=== PATIENT | male | born 1955 | race Caucasian/White ===

== ENCOUNTER 2020-04-23 08:31 | Outpatient (NON) | payer OTHER, SELFPAY ==
[2020-04-23 18:18] LABS: SARS-CoV-2 RNA PCR Positive
== END 2020-04-23 08:32 ==
LOC: ANHCOVIDDT 08:33
PROVIDERS: PCP Family Medicine; Visit Provider Family Medicine
DX: U07.1 COVID-19 (principal); R68.89 Other general symptoms and signs
CPT/HCPCS: C9803; U0003; U0005

== ENCOUNTER 2020-04-26 10:20 | Outpatient (CLI) | payer OTHER, SELFPAY ==
--- NOTE | ~2020-04-26 | XR_ITS ---
XR chest 2V 04/26/2020 10:33 Indication: Shortness of breath. Covid. Cough. Procedure: 2 view chest Comparison: No prior studies for comparison. Findings: Patchy bilateral infiltrates. Chronic apical pleural thickening/scarring. No pleural effusi on. Heart size normal. No pneumothorax. Impression: 1: Patchy bilateral peripheral infiltrates, consistent with pneumonia. Reviewed, dictated and finalized at location A. NER AND DYER Impression: 1: Patchy bilateral peripheral infiltrates, consistent with pneumonia.
== END 2020-04-26 10:21 | disposition home or self-care (01) ==
PROVIDERS: PCP Family Medicine; Visit Provider Physician Assistant
DX: U07.1 COVID-19 (principal); R06.02 Shortness of breath; R91.8 Other nonspecific abnormal finding of lung field
CPT/HCPCS: 71046

== ENCOUNTER 2020-04-28 09:29 | Inpatient (IN) | payer OTHER, SELFPAY ==
[2020-04-28] VITALS (14 sets, daily range): BP systolic 118–131; BP diastolic 72–95; PULSE 63–89; RESP 16–20; TEMP 36.4–36.9; O2SAT 74–98; BMI 24.2; BMI 24.0
--- NOTE | ~2020-04-28 | XR_ITS ---
EXAMINATION: XR chest 1V portable EXAM DATE: 04/30/2020 07:58 INDICATION: COVID 19. TECHNIQUE: Portable AP frontal chest x-ray was obtained. Comparison is made to prior examination from 04/28/2020, 04/26. FINDINGS: Suspect that there has been some interval increase in ill-defined density over both lungs, could be developing groundglass opacities of COVID pneumonia. There are some prominent peripheral ret iculation, appearance most consistent with chronic interstitial lung disease. Small amount of biapic al scarring. There is no pneumothorax or pleural effusion suspected. Moderate chronic hyperinflation. Cardiomediastinal silhouette is normal. There are mild bony degenerative changes. IMPRESSION: 1. Suspect developing bilateral groundglass acute infectious process. 2. Some prominent peripheral distribution reticulation, most consistent with interstitial lung disea se. 3. Hyperinflation. Reviewed, dictated and finalized at location A. L ARCHITECT IMPRESSION: 1. Suspect developing bilateral groundglass acute infectious process. 2. Some prominent peripheral distribution reticulation, most consistent with i nterstitial lung disease. 3. Hyperinflation.
--- NOTE | ~2020-04-28 | XR_ITS ---
EXAMINATION: XR chest 1V portable INDICATION: Shortness of breath TECHNIQUE: Portable AP chest at 0638 hours COMPARISON: 04/30/2020 FINDINGS: Diffuse opacities persist throughout all lung zones without significant change. There is no pleural effusion. No definite pneumothorax is identified. Subcutaneous emphysema has developed in th e neck, right chest wall, and the bilateral supraclavicular regions. There is questionable pneumomedi astinum. The cardiomediastinal silhouette is stable. IMPRESSION: 1. Stable diffuse lung disease, consistent with pneumonia and/or pulmonary edema. 2. Interval development of subcutaneous emphysema in the neck and right chest wall and possible pneum omediastinum. Consider further evaluation with CT of the chest. Reviewed, dictated and finalized at location A. TION COORDINATOR IMPRESSION: 1. Stable diffuse lung disease, consistent with pneumonia and/or pulmonary abigail a. 2. Interval development of subcutaneous emphysema in the neck and right chest w all and possible pneumomediastinum. Consider further evaluation with CT of the chest.
--- NOTE | ~2020-04-28 | XR_ITS ---
EXAMINATION: XR chest 1V portable EXAM DATE: 04/28/2020 10:18 INDICATION: Shortness of air. Cough. TECHNIQUE: Portable AP frontal chest x-ray was obtained. Comparison is made to prior examination from 04/26/2020. Correlation was made with chest CT 02/01/2013. FINDINGS: There are some prominent peripheral reticulation, appearance most consistent with chronic i nterstitial lung disease. Difficult to exclude left basilar infection. Small amount of biapical scarr ing. No confluent consolidation, pneumothorax or pleural effusion suspected. Moderate chronic hyperin flation. Cardiomediastinal silhouette is normal. There are mild bony degenerative changes. IMPRESSION: 1. Some prominent peripheral distribution reticulation, most consistent with interstitial lung disea se. Consider follow-up nonemergent chest CT without contrast. 2. Difficult to exclude left basilar infection. 3. Hyperinflation. Reviewed, dictated and finalized at location A. MOBILE APPRAISER IMPRESSION: 1. Some prominent peripheral distribution reticulation, most consistent with i nterstitial lung disease. Consider follow-up nonemergent chest CT without contr ast. 2. Difficult to exclude left basilar infection. 3. Hyperinflation.
--- NOTE | ~2020-04-28 | US_ITS ---
EXAMINATION: US venous doppler [facility] DATE: 04/29/2020 10:46 INDICATION: Acute pulmonary emboli. TECHNIQUE: Grayscale ultrasound images without and with compression and Doppler ultrasound images of the bilateral lower extremity veins were obtained. COMPARISON: None. FINDINGS: The visualized portions of right common femoral vein, profunda (deep) femoral vein, femoral vein, pop liteal vein, peroneal veins, posterior tibial veins, and greater saphenous vein outflow are patent. The visualized portions of left common femoral vein, profunda femoral vein, femoral vein, popliteal v ein, peroneal veins, posterior tibial veins, and greater saphenous vein outflow are patent. IMPRESSION: 1. No deep venous thrombosis. Reviewed, dictated and finalized at location B. PING RECEIVING MANAGER
--- NOTE | ~2020-04-28 | CT_ITS ---
EXAMINATION: CTA chest PE protocol DATE: 04/28/2020 19:02 INDICATION: Hypoxia TECHNIQUE: Computed tomography angiography (CTA) of the chest was performed with 100 mL Omnipaque-350 intravenous contrast timed to evaluate the pulmonary arteries. Coronal maximum intensity projection 3D-reconstructions were created by the technologist. The dose-length product (DLP) was 290.32 mGy-cm. Automated exposure control and iterative reconstruction technique were employed. COMPARISON: None. FINDINGS: The pulmonary arteries are well-opacified. There are acute pulmonary emboli in the proximal branches of the left upper lobe, left lower lobe, right middle lobe, and right lower lobe pulmonary arteries. There is straightening of the interventricular septum. There are smooth septal thickening a nd groundglass opacities with a lower lung zone predominance. There is no pleural effusion or pneumot horax. There is a small sliding hiatal hernia. Mild bilateral gynecomastia is noted. There is moderat e emphysema. There is moderate thoracic spondylosis IMPRESSION: 1. Acute bilateral pulmonary emboli with possible right heart strain. 2. Groundglass opacities and interlobular septal thickening with a lower lung zone predominance, cons istent with pneumonia and/or pulmonary edema. These findings were discussed with Dr. Dominick MD at 2009 hours on 04/28/2020. Reviewed, dictated and finalized at location A. THESIOLOGIST IMPRESSION: 1. Acute bilateral pulmonary emboli with possible right heart strain. 2. Groundglass opacities and interlobular septal thickening with a lower lung z one predominance, consistent with pneumonia and/or pulmonary edema. These findings were discussed with Dr. Dominick MD at 2009 hours on 04/28/2020.
--- NOTE | ~2020-04-28 | CT_ITS ---
EXAMINATION: CT diagnostic chest wo con DATE: 05/04/2020 13:38 INDICATION: Pneumomediastinum TECHNIQUE: Computed tomography (CT) of the chest was performed without intravenous contrast. The dose -length product (DLP) was 229.52 mGy-cm. Automated exposure control and iterative reconstruction tech Pinstripe[employer] were employed. COMPARISON: 04/28/2020 FINDINGS: There are diffuse peripheral groundglass opacities in the lungs with a lower lung zone pred ominance without significant change since the comparison examination. Pneumomediastinum has developed which tracks into the neck, the precervical space, the supraclavicular regions, and the chest wall, right greater than left. There is no pleural effusion or pneumothorax. The heart size is normal. Ther e are no pathologically enlarged thoracic lymph nodes. There is moderate emphysema. Mild bilateral gy necomastia is noted. There is moderate thoracic spondylosis. IMPRESSION: 1. Interval development of pneumomediastinum tracking into the neck and chest wall, likely related to lung disease. 2. Diffuse groundglass opacities with a lower lung zone predominance, likely pneumonia. Reviewed, dictated and finalized at location A. COM SPECIALIST IMPRESSION: 1. Interval development of pneumomediastinum tracking into the neck and chest w all, likely related to lung disease. 2. Diffuse groundglass opacities with a lower lung zone predominance, likely pn eumonia.
--- NOTE | 2020-04-28 09:40 | ECG_ITS ---
Measurements Intervals [place] Rate: 69 P: 69 AK: 169 QRS: 60 QRSD: 93 T: 24 QT: 378 QTc: 407 Interpretive Statements SINUS RHYTHM WITH SINUS ARRHYTHMIA BORDERLINE ST-T WAVE ABNORMALITY- ANTEROLAT/INF LEADS BORDERLINE ECG Electronically Signed On 04-28-2020 12:50:23 INFLATED PAD BUFFER by Kristian June D.O.
[2020-04-28] MEDS: DEXAMETHASONE SOD PHOS INJ 4 MG/ML VIAL 6 MG IV PUSH (09:53)
[2020-04-28 10:05] LABS: Basophils Percent Auto 0.3 % (0.2-1.2); Hematocrit 43.6 % (42.0-52.0); Hemoglobin 15.3 g/dL (14.0-18.0); Immature Granulocyte Absolute 0.23 K/mm3 (0.00-0.031); Immature Granulocyte Percent A 1.4 % (0-0.5); Lymphocytes Absolute Auto 0.99 K/mm3 (0.9-3.2); Lymphocytes Percent Auto 6.2 % (18.3-44.2); Mean Corpuscular HGB Conc 35.1 g/dl (32-36); Mean Corpuscular Hemoglobin 32.1 pg (26-34); Mean Corpuscular Volume 91.6 fl (80-100); Monocytes Percent Auto 6.3 % (2.6-8.5); Neutrophils Absolute Auto 13.7 K/mm3 (1.3-6.7); Neutrophils Percent Auto 85.8 % (45.5-73.1); Platelet Count Result 270 k/mm3 (150-375); Red Blood Count 4.76 M/mm3 (4.6-6.20); Red Cell Distribution Width 11.9 % (11.5-14.5)
[2020-04-28 10:21] LABS: Alanine Aminotransferase 56 U/L (4-50); Alkaline Phosphatase 75 U/L (38-126); Anion Gap 8 mmol/L (8-16); Aspartate Amino Transferase 59 U/L (17-59); Blood Urea Nitrogen 19 mg/dL (9-20); CRP 2.1 mg/dL (<1.0); Calcium 9.4 mg/dL (8.4-10.2); Carbon Dioxide 27 mmol/L (22-30); Chloride 104 mmol/L (98-107); Estimated CRCL calculation 70 ml/min; Estimated Glomerular Filt Rate > 60; Glucose 124 mg/dL (75-110); Sodium 139 mmol/L (137-145)
[2020-04-28 10:42] LABS: D Dimer > 20.00 ug/mL (<0.48)
--- NOTE | 2020-04-28 10:49 | ED.SOB ---
HPI - SOB/Dyspnea General Chief Complaint: Shortness of Breath/Dyspnea Stated Complaint: SOB COVID + PNEUMONIA Time Seen by Provider: 04/28/20 09:33 History of Present Illness HPI Narrative: Patient is a 64-year-old male who presents ER with shortness of breath. Reports began feeling ill on 04/15/2020. Was told symptoms were not severe enough so he did not receive a Covid test until 04/23/2020. It came back positive. Patient reports home pulse oximeter is showing his oxygen level in the 80s. Because of persistent shortness of breath with any type of exertion he came in for further evaluation. Reports mild cough with exertion. No chest pain or chest pressure. Reports fevers and chills have improved from earlier in his timeline. He has not been on any inhalers or steroids. He has been using a nasal decongestant. No known Covid contacts but suspects he contracted the illness while traveling to [place] and to [facility] to visit family. Upon arrival to the ER patient satting in the mid 70s. Related Data Home Medications Medication Instructions Recorded Confirmed calcipotriene 0.005 % scalp 1 applic TOPICAL DAILY 03/12/20 solution triamcinolone acetonide 0.1 % 1 applic TOPICAL BID 03/12/20 topical cream Allergies Allergy/AdvReac Type Severity Reaction Status Date / Time NKDA Allergy Mild unknown Uncoded 04/28/20 11:06 Review of Systems Review of Systems: All systems reviewed & are unremarkable except as noted in HPI and below Constitutional: Constitutional: Reports chills, Reports fatigue and Reports fever(s) ENT: Reports nasal congestion and Denies sore throat Cardiovascular: Cardiovascular: Denies chest pain and Denies radiating jaw, neck or arm pain Respiratory: Respiratory: Reports cough, Reports dyspnea and Denies wheezing Gastrointestinal: Gastrointestinal: Denies abdominal pain, Denies nausea and Denies vomiting [facility] Past Medical History Medical History (Updated 04/28/20 @ 11:39 by Demarco Sunshine MD) Cholesteatoma of attic of right ear Hearing loss of both ears Surgical History Surgical History (Updated 12/18/19 @ 10:44 by Ghazala Miller MD) History of mastoidectomy Family History Family History Father Family history of alcoholism, Onset Age: 68 Patient's father is Mother Family history of malignant neoplasm of ovary, Onset Age: 63 Patient's mother is Social History Social History Social History: Smoking status: Never smoker Second hand tobacco smoke exposure: No Alcohol intake: current Drinks per week: 6 Substance use: never Substance use type: does not use Gender identity (if verbalized by the patient): Male Exam Narrative: Exam Narrative: GENERAL: Well-appearing, well-nourished, and in no acute distress. HEAD: Normocephalic, atraumatic. CHEST: Clear to auscultation. No respiratory distress. HEART: Regular rate and rhythm. Normal peripheral pulses. ABDOMEN: Soft, nontender, nondistended. EXTREMITIES: Normal range of motion. No edema. SKIN: Warm, dry, no rash. NEURO: Alert and oriented x3. PSYCH: Normal mood and affect. Course Course Emergency Course: Patient requiring 4 L nasal cannula for normal oxygenation. Patient given dexamethasone. Admit to hospitalist service. Vital Signs Vital signs: Vital Signs Temperature 98.4 F 04/28/20 09:50 Pulse Rate 83 04/28/20 09:50 Respiratory Rate 16 04/28/20 09:50 Blood Pressure 131/89 04/28/20 09:50 Pulse Oximetry 74 L 04/28/20 09:50 Temperature 98.4 F 04/28/20 09:50 Pulse Rate 75 04/28/20 10:46 Respiratory Rate 16 04/28/20 09:50 Blood Pressure 128/86 04/28/20 10:46 Pulse Oximetry 90 04/28/20 10:46 MDM - SOB/Dyspnea Lab Data Result diagrams: 04/28/20 09:58 04/28/20 09:58
--- NOTE | 2020-04-28 13:21 | ADMGEN ---
This patient, Junior Giraldo, was admitted to [facility] Surg Room 321-01. Patient/family oriented to hospital policies and general routines including ID bracelet, bed and alarms, visiting hours, pain management, procedures, bathroom and other care routines, personal items, smoking policy, room service/diet, and visiting hours. Information on how to activate the Rapid Response Team has been discussed. Patient/Family are encouraged to report perceived risks to care and to ask questions if they do not understand what they are told or what they should do.
--- NOTE | 2020-04-28 17:49 | PM.IMHP ---
H&P: HPI History of Present Illness Date/Time: 04/28/20 17:49 Chief Complaint: SOB Narrative: Junior Giraldo is a 64 year old male here for SOB. Patient was traveling over the [place] holiday and when he returned he began to have symptoms of headache, diarrhea, shortness of breath, fatigue and cough. His has similar symptoms. His symptoms began April 15 but they were mild so he was not tested initially for COVID-19. He did have loss of taste and smell but this has improved. His headache and diarrhea symptoms also have improved. He continued however to have shortness of breath and obtained a pulse ox. His oxygen requirement has been slowly drifting down initially in the low 90s but now consistently in the upper 80s. He ultimately was tested for COVID on April 23 and was positive. A chest x-ray on April 26 which showed patchy bilateral peripheral infiltrates consistent with pneumonia. At that time he was started on dexamethasone. Levaquin also was ordered but patient states he never took this. He denies chest pain, fever, dysphagia, nausea/vomiting, dysuria, hematuria. Because of his persistent shortness of breath, dyspnea on exertion and hypoxia, patient presented to the emergency room for evaluation. In the ED, patient was hypoxic in the 70's that improved with 4L. CXR showing prominent peripheral distribution reticulation, most consistent with interstitial lung disease. WBC elevated but he had been on steroids. He was started on IV Dexamethasone and admitted for further care. He feels better this evening. Review of Systems Review of Systems: All systems reviewed & are unremarkable except as noted in HPI and below PMFSH Past Medical History Medical History Cholesteatoma of attic of right ear Hearing loss of both ears Surgical History Surgical History History of mastoidectomy Family History Family History Father Family history of alcoholism, Onset Age: 68 Patient's father is Mother Family history of malignant neoplasm of ovary, Onset Age: 63 Patient's mother is Social History Social History (Updated 04/28/20 @ 18:21 by Jared Nelson MD) Social History: and lives at home with his . No tobacco or drug use. Drinks 1-2 alcoholic drinks per day most days. Full code. Nominates his to be the individual to make decisions for him if he is unable. Smoking status: Never smoker Second hand tobacco smoke exposure: No Alcohol intake: former Drinks per week: 6 Substance use: never Substance use type: does not use Gender identity (if verbalized by the patient): Male Sexual Orientation (if Verbalized by the Patient): Straight or Heterosexual Spiritual care concerns: No Meds Home Medications and Allergies Home Medications Medication Instructions Recorded Confirmed Type clobetasol 0.05 % scalp solution 1 applic TOPICAL DAILY #50 ml 12/18/19 04/28/20 Rx azelastine 137 mcg (0.1 %) nasal 1 spray INTRANASAL Q12H #30 ml 03/12/20 04/28/20 Rx spray aerosol calcipotriene 0.005 % scalp 1 applic TOPICAL DAILY 03/12/20 04/28/20 History solution triamcinolone acetonide 0.1 % 1 applic TOPICAL BID 03/12/20 04/28/20 History topical cream dexamethasone 4 mg tablet 4 mg PO BID 7 Days #14 tablet 04/25/20 04/28/20 Rx dexamethasone 6 mg tablet 6 mg PO BID 7 Days #14 tablet 04/25/20 04/28/20 Rx fluticasone 250 mcg-salmeterol 50 1 inh INHALATION BID #60 ea 04/25/20 04/28/20 Rx mcg/dose blistr powdr for inhalation levofloxacin 500 mg tablet 500 mg PO DAILY #10 tablet 04/27/20 04/28/20 Rx Allergies Allergy/AdvReac Type Severity Reaction Status Date / Time NKDA Allergy Mild unknown Uncoded 04/28/20 14:44 Vital Signs Vital Signs - 24 hr
[2020-04-28] MEDS: ENOXAPARIN 40 MG/0.4 ML SYRINGE SUB-Q ×2 (20:48→20:49)
[2020-04-28] MEDS: REMDESIVIR 200 MG/NS 250 ML 200 MG/250 ML BAG 250 MG IVPB (20:48)
[2020-04-28] MEDS: AZELASTINE HCL NASAL 0.1% 137 MCG/SPR 30 ML BTL 1 SPRAY NASAL (20:52)
[2020-04-28] MEDS: ALBUTEROL SULFATE (*SP) AEROSOL 1 PUFF 2 PUFF INHALATION (21:13)
[2020-04-28] MEDS: FLUTICASONE/SALMETEROL 115-21 MCG INHALER 1 PUFF 2 PUFF INHALATION (21:13)
[2020-04-29] VITALS (10 sets, daily range): BP systolic 115–132; BP diastolic 61–90; PULSE 72–88; RESP 16–20; TEMP 36.6–37.1; O2SAT 88–94
--- NOTE | 2020-04-29 | ECHO_ITS ---
Patient Info Name: Junior Giraldo Age: 64 years : 1955 Gender: Male Ht: 72 in Wt: 177 lbs BSA: 2.02 m2 HR: 79 bpm BP: 119 / 61 mmHg Technical Quality: Fair Exam Date: 04/29/2020 11:28 AM Exam Location: [facility] Pulmonary Patient Status: Inpatient Admit Date: 04/28/2020 Staff Ordering Physician: Jared Nelson MD Supervisor Cold Rolling: Dali Moore RDCS Attending Provider: Jared Nelson MD Exam Type: CA echo doppler color flow Study Info Indications - PULMONARY EMBOLISM Complete two-dimensional, color flow and Doppler transthoracic echocardiogram is performed. Summary 1. Complete two-dimensional, color flow and Doppler transthoracic echocardiogram is performed. 2. Left ventricular chamber dimension is normal. 3. Left ventricular systolic function is normal, estimated at 60-65%. 4. The left ventricular diastolic function is normal. 5. E/e' 5 is not elevated. 6. There is trace tricuspid valve regurgitation. 7. No pulmonary hypertension, estimated pulmonary arterial systolic pressure is 28 mmHg. Left Ventricle E/e' 5 is not elevated. Left ventricular chamber dimension is normal. Left ventricular systolic function is normal, estimated at 60-65%. The left ventricular diastolic function is normal. Right Ventricle Right ventricular chamber dimension is normal. Right ventricular systolic function is normal. Left Atria Left atrial chamber dimension is normal. Right Atria Right atrial chamber dimension is normal. Aortic Valve The aortic valve is trileaflet. There is no aortic valve stenosis. There is no aortic valve regurgitation. Pulmonic Valve There is no pulmonic regurgitation. Mitral Valve There is no mitral valve stenosis. There is no mitral valve regurgitation. Tricuspid Valve There is trace tricuspid valve regurgitation. No pulmonary hypertension, estimated pulmonary arterial systolic pressure is 28 mmHg. Pericardium/Pleural There is no pericardial effusion. Inferior Vena Cava Normal inferior vena cava with >50% collapse upon inspiration consistent with normal right atrial pressure, 5 mmHg. Aorta The aortic root size at the sinus of Valsalva is normal. Left Ventricular Outflow Tract Name Value Normal LVOT 2D LVOT Diameter 2.0 cm LVOT Doppler LVOT Peak Gradient 5 mmHg LVOT Mean Gradient 3 mmHg LVOT VTI 20 cm LVOT VTI/AV VTI Ratio 1.0 LVOT Stroke Volume 64 ml LVOT CO 6.3 l/min LVOT CI 3.1 l/min/m2 Pulmonic Valve Name Value Normal RVOT Doppler RVOT Peak Gradient 4 mmHg PV Doppler PV Pea
[2020-04-29] MEDS: ALBUTEROL SULFATE (*SP) AEROSOL 1 PUFF 2 PUFF INHALATION ×4 (02:39→21:50)
[2020-04-29] MEDS: ENOXAPARIN 80 MG/0.8 ML SYRINGE SUB-Q ×2 (06:28→18:03)
[2020-04-29 06:59] LABS: Alanine Aminotransferase 46 U/L (4-50); Estimated CRCL calculation 80 ml/min; Estimated Glomerular Filt Rate > 60
[2020-04-29] MEDS: AZELASTINE HCL NASAL 0.1% 137 MCG/SPR 30 ML BTL 1 SPRAY NASAL ×2 (08:24→21:51)
[2020-04-29] MEDS: FLUTICASONE/SALMETEROL 115-21 MCG INHALER 1 PUFF 2 PUFF INHALATION ×2 (08:25→21:51)
[2020-04-29] MEDS: DEXAMETHASONE SOD PHOS INJ 4 MG/ML VIAL 6 MG IV PUSH (08:26)
--- NOTE | 2020-04-29 15:56 | PM.IMPN ---
Progress Note: A&P Assessment and Plan (1) Pneumonia due to COVID-19 virus: Code(s): U07.1 - COVID-19; J12.82 - Pneumonia due to coronavirus disease 2019 Status: Acute Assessment and Plan: Patient diagnosed with COVID on 04/23/20 but symptomatic since 04/15. CTA showing groundglass opacities and interlobular septal thickening with a lower lung zone predominance. Decadron and Remdesivir started 04/28/20. Greater than 10 days since symptoms but unclear if symptoms related to COVID or from PE. ALT normal now. Continue supplemental oxygen. Wean oxygen as tolerated. Will continue the Decadron and Remdesivir. Continue Albuterol. Continue supportive care. Instructed patietn to lay prone as toelrated. (2) Pulmonary embolism: Code(s): I26.99 - Other pulmonary embolism without acute cor pulmonale Status: Acute Assessment and Plan: Patient has been travelling lately and he is high risk for VTE since he has COVID as well. CTA of the chest showing acute bilateral pulmonary emboli if multiple lobes with possible right heart strain. Doppler of bilateral LE negative for DVT. Echo showing EF 60-65% and normal RV chamber dimension and systolic function so thus do not feel he has right heart strain. Lovenox started. Will need to be converted to Eliquis when able. (3) Hypoxia: Code(s): R09.02 - Hypoxemia Status: Acute Assessment and Plan: Patient was on 4L yesterday but has worsened to mow requiring 7L. Related to above. Wean O2 as toerlated. (4) Chronic rhinitis: Code(s): J31.0 - Chronic rhinitis Status: Acute Assessment and Plan: Stable. Continue Advair (5) Hearing loss of both ears: Code(s): H91.93 - Unspecified hearing loss, bilateral Status: Acute Assessment and Plan: Chronic. Subjective Date/time seen: 04/29/20 15:56 Interval history: Date of service 04/29/20 64yo male known to have COVID here for worsening SOB and hypoxia and found to have PE. SOB better. Up ambulating in the room. No CP. Eating okay. Using the incentive spirometry Exam Narrative: Exam Narrative: AF 97.8 115/67 88 18 93% 7L Gen - NARD Chest - bibasilar inspiratory crackles otherwise clear. Normal respiratory rate. CV - RRR. S1-S2. Abd - soft. NT/ND. +BS. Ext - no pedal edema. Neuro - nonfocal Psych - normal mood and affect. Skin - warm and dry. Objective Data Vital Signs Vital Signs: Vital Signs - 24 hr 04/28/20 17:00 04/28/20 18:00 04/28/20 20:00 Temperature 98.1 F 97.5 F L Pulse Rate 64 89 Respiratory Rate 18 20 Blood Pressure 130/83 122/72 Pulse Oximetry 95 95 90 04/28/20 21:15 04/29/20 00:00 04/29/20 04:00 Temperature 98.6 F 98.2 F Pulse Rate 64 79 72 Respiratory Rate 20 20 20 Blood Pressure 119/61 116/75 Pulse Oximetry 95 94 90 04/29/20 08:00 04/29/20 08:25 04/29/20 08:40 Temperature 98.8 F Pulse Rate 85 Respiratory Rate 16 Blood Pressure 127/90 Pulse Oximetry 92 88 L 91 04/29/20 12:00 Temperature 97.8 F Pulse Rate 88 Respiratory Rate 18 Blood Pressure 115/67 Pulse Oximetry 93 Intake/Output Intake/Output: Intake & Output 04/26/20 04/27/20 04/28/20 04/29/20 23:59 23:59 23:59 23:59 Intake Total 500 240 Balance 500 240 Meds/Results Medications: Active Medications Generic Name Dose Route Start Last Admin Trade Name Freq PRN Reason Stop Dose Admin Acetaminophen 650 mg 04/28/20 11:08 Acetaminophen 325 Mg Tablet PO Q4H PRN Mild Pain (1-3) or Fever Hydrocodone Bitart/Acetaminophen 1 tab 04/28/20 11:08 Hydrocodone/Acetaminophen (*Crx) 5-325 Mg Tablet PO Q4H PRN Pain Rated 4-6 Albuterol 2 puff 04/28/20 20:00 04/29/20 14:16 Albuterol Sulfate (*Sp) Aerosol 1 Puff INHALATION 2 puff Q6HRT TAMELA Administration Azelastine HCl 1 spray 04/28/20 21:00 04/29/20 08:24 Azelastine Hcl Nasal 0.1% 137 Mcg/Spr 30 Ml B
[2020-04-29] MEDS: REMDESIVIR 100 MG/NS 250 ML 100 MG/250 ML BAG 250 MG IVPB (21:51)
[2020-04-30] VITALS (12 sets, daily range): BP systolic 118–143; BP diastolic 56–78; PULSE 70–148; RESP 20–36; TEMP 36.4–36.9; O2SAT 85–97
[2020-04-30 06:35] LABS: Basophils Percent Auto 0.1 % (0.2-1.2); Eosinophils Percent Auto 0.4 % (0-4.4); Hematocrit 38.7 % (42.0-52.0); Hemoglobin 13.2 g/dL (14.0-18.0); Immature Granulocyte Absolute 0.17 K/mm3 (0.00-0.031); Immature Granulocyte Percent A 1.6 % (0-0.5); Lymphocytes Absolute Auto 0.77 K/mm3 (0.9-3.2); Lymphocytes Percent Auto 7.3 % (18.3-44.2); Mean Corpuscular HGB Conc 34.1 g/dl (32-36); Mean Corpuscular Hemoglobin 31.7 pg (26-34); Mean Platelet Volume 9.6 fl (7.4-10.4); Monocytes Absolute Auto 0.4 K/mm3 (0.1-0.6); Monocytes Percent Auto 4.1 % (2.6-8.5); Neutrophils Absolute Auto 9.2 K/mm3 (1.3-6.7); Neutrophils Percent Auto 86.5 % (45.5-73.1); Platelet Count Result 197 k/mm3 (150-375); Red Blood Count 4.16 M/mm3 (4.6-6.20); Red Cell Distribution Width 12.1 % (11.5-14.5); White Blood Count 10.6 K/mm3 (4.5-10.0)
[2020-04-30] MEDS: ENOXAPARIN 80 MG/0.8 ML SYRINGE SUB-Q ×2 (07:02→17:32)
[2020-04-30 07:07] LABS: Alanine Aminotransferase 41 U/L (4-50); Alkaline Phosphatase 63 U/L (38-126); Anion Gap 3 mmol/L (8-16); Aspartate Amino Transferase 37 U/L (17-59); Bilirubin,Total 0.6 mg/dL (0.2-1.3); Blood Urea Nitrogen 15 mg/dL (9-20); CRP 5.2 mg/dL (<1.0); Calcium 8.5 mg/dL (8.4-10.2); Carbon Dioxide 30 mmol/L (22-30); Chloride 107 mmol/L (98-107); Estimated CRCL calculation 80 ml/min; Estimated Glomerular Filt Rate > 60; Glucose 100 mg/dL (75-110); Lactate Dehydrogenase 1189 U/L (313-618); Potassium 4.3 mmol/L (3.4-5.0); Sodium 140 mmol/L (137-145)
[2020-04-30] MEDS: FLUTICASONE/SALMETEROL 115-21 MCG INHALER 1 PUFF 2 PUFF INHALATION ×2 (08:04→21:28)
[2020-04-30] MEDS: ALBUTEROL SULFATE (*SP) AEROSOL 1 PUFF 2 PUFF INHALATION ×3 (08:04→21:29)
[2020-04-30] MEDS: AZELASTINE HCL NASAL 0.1% 137 MCG/SPR 30 ML BTL 1 SPRAY NASAL ×2 (08:04→21:27)
[2020-04-30] MEDS: DEXAMETHASONE SOD PHOS INJ 4 MG/ML VIAL 6 MG IV PUSH (08:04)
--- NOTE | 2020-04-30 11:50 | PM.IMPN ---
Progress Note: A&P Assessment and Plan (1) Pneumonia due to COVID-19 virus: Code(s): U07.1 - COVID-19; J12.82 - Pneumonia due to coronavirus disease 2018 Status: Acute Assessment and Plan: Patient diagnosed with COVID on 04/23/20 but symptomatic since 04/15. CTA showing groundglass opacities and interlobular septal thickening with a lower lung zone predominance. Decadron and Remdesivir started 04/28/20. Greater than 10 days since symptoms but unclear if symptoms related to COVID or from PE. ALT normal now. CRP worse. Continue supplemental oxygen. Wean oxygen as tolerated. Will continue the Decadron and Remdesivir. Continue Albuterol. Continue supportive care. Encouraged patient to lay prone as tolerated and to be up to the chair as he tolerates. (2) Acute respiratory failure with hypoxia: Code(s): J96.01 - Acute respiratory failure with hypoxia Status: Acute Assessment and Plan: Patient was hypoxic on admission requiring 4L. He has worsened to 7L but remaining stable thus far. He states laying prone helped. CXR reviewed (04/30) showing developing bilateral acute infectious process, probably COVID and concerns for underlying ILD. Encouraged him to continue to lay prone as he tolerates. Okay to be out of bed to the chair as he tolerates. Check ABG in the morning. Check CELSO. (3) Pulmonary embolism: Code(s): I26.99 - Other pulmonary embolism without acute cor pulmonale Status: Acute Assessment and Plan: Patient has been travelling lately and he is high risk for VTE since he has COVID as well. CTA of the chest showing acute bilateral pulmonary emboli if multiple lobes with possible right heart strain. Doppler of bilateral LE negative for DVT. Echo showing EF 60-65% and normal RV chamber dimension and systolic function so thus do not feel he has right heart strain. Lovenox started. Will convert to Eliquis when able. (4) Hypoxia: Code(s): R09.02 - Hypoxemia Status: Acute Assessment and Plan: Patient was on 4L yesterday but has worsened to now requiring 7L. Related to above. Wean O2 as toerlated. (5) Chronic rhinitis: Code(s): J31.0 - Chronic rhinitis Status: Acute Assessment and Plan: Stable. (6) Hearing loss of both ears: Code(s): H91.93 - Unspecified hearing loss, bilateral Status: Acute Assessment and Plan: Chronic. Subjective Date/time seen: 04/30/20 11:50 Interval history: Date of service 04/30 64yo male known to have COVID here for worsening SOB and hypoxia and found to have PE. No complaints. Still SOB with exertion. Able to tolerate laying prone at times. Eating okay. Exam Narrative: Exam Narrative: AF 97.9 143/63 99 22 92% 7L Gen - NARD Chest - decreased inspiratory crackles, nml RR CV - RRR. S1-S2. Abd - soft. NT/ND. +BS. Ext - no pedal edema. Neuro - nonfocal Psych - normal mood and affect. Skin - warm and dry. Objective Data Vital Signs Vital Signs: Vital Signs - 24 hr 04/29/20 12:00 04/29/20 16:00 04/29/20 18:05 Temperature 97.8 F 98.3 F Pulse Rate 88 83 Respiratory Rate 18 16 Blood Pressure 115/67 132/75 Pulse Oximetry 93 94 89 L 04/29/20 18:10 04/29/20 20:00 04/30/20 00:00 Temperature 98.2 F 98.0 F Pulse Rate 76 92 Respiratory Rate 20 20 Blood Pressure 125/82 118/70 Pulse Oximetry 92 92 96 04/30/20 04:00 04/30/20 08:00 04/30/20 11:19 Temperature 97.8 F 97.9 F Pulse Rate 82 99 148 H Respiratory Rate 20 22 H 36 H Blood Pressure 129/72 143/63 H Pulse Oximetry 97 91 85 L 04/30/20 11:22 Temperature Pulse Rate Respiratory Rate Blood Pressure Pulse Oximetry 92 Intake/Output Intake/Output: Intake & Output 04/27/20 04/28/20 04/29/20 04/30/20 23:59 23:59 23:59 23:59 Intake Total 500 1180 720 Balance 500 1180 720 Meds/Results Medications: Active Medications Generic Name Dose
[2020-04-30] MEDS: HYDROcodone/acetaminophen (*CRX) 5-325 MG TABLET 1 TAB PO (18:35)
[2020-04-30] MEDS: guaiFENesin 12 HR 600 MG TABCR PO (21:29)
[2020-04-30] MEDS: REMDESIVIR 100 MG/NS 250 ML 100 MG/250 ML BAG 250 MG IVPB (21:29)
[2020-05-01] VITALS (10 sets, daily range): BP systolic 108–128; BP diastolic 59–79; PULSE 67–85; RESP 16–22; TEMP 36.6–36.8; O2SAT 90–99
[2020-05-01] MEDS: ALBUTEROL SULFATE (*SP) AEROSOL 1 PUFF 2 PUFF INHALATION ×4 (01:35→20:00)
[2020-05-01 04:24] LABS: Alveolar/Arterial O2 Gradient 335.2 mmHg; Base Excess ABG 0.2 mEq/l (+/-2.0); Device HIGH FLOW NASAL CANN; Fractional Inspired Oxygen 60 %; HCO3 ABG 22.7 mEq/l (22.0-26.0); Oxygen Content ABG 17.3 %vol (16.0-22.0); Oxygen Saturation ABG 92.6 % (95.0-100.0); Oxyhemoglobin 89.7 % THb (90.0-100.0); PCO2 ABG 30.9 mmHg (35.0-45.0); PO2 ABG 58.6 mmHg (80.0-100.0); PO2 FiO2 Ratio Arterial Blood 0.98 %; Site Drawn LEFT BRACHIAL; Total Hemoglobin 13.7 g/dL (12.0-18.0); pH ABG 7.484 (7.350-7.450)
[2020-05-01] MEDS: ENOXAPARIN 80 MG/0.8 ML SYRINGE SUB-Q ×2 (05:32→18:24)
[2020-05-01 06:17] LABS: Alanine Aminotransferase 40 U/L (4-50); Anion Gap 2 mmol/L (8-16); Blood Urea Nitrogen 13 mg/dL (9-20); Calcium 8.3 mg/dL (8.4-10.2); Carbon Dioxide 29 mmol/L (22-30); Chloride 107 mmol/L (98-107); Estimated CRCL calculation 80 ml/min; Estimated Glomerular Filt Rate > 60; Glucose 117 mg/dL (75-110); Potassium 4.4 mmol/L (3.4-5.0); Sodium 138 mmol/L (137-145)
[2020-05-01] MEDS: guaiFENesin 12 HR 600 MG TABCR PO ×2 (09:22→20:47)
[2020-05-01] MEDS: AZELASTINE HCL NASAL 0.1% 137 MCG/SPR 30 ML BTL 1 SPRAY NASAL ×2 (09:23→20:47)
[2020-05-01] MEDS: DEXAMETHASONE SOD PHOS INJ 4 MG/ML VIAL 6 MG IV PUSH (09:23)
[2020-05-01] MEDS: FLUTICASONE/SALMETEROL 115-21 MCG INHALER 1 PUFF 2 PUFF INHALATION ×2 (09:23→20:00)
--- NOTE | 2020-05-01 16:44 | PM.IMPN ---
Progress Note: A&P Assessment and Plan (1) Pneumonia due to COVID-19 virus: Code(s): U07.1 - COVID-19; J12.82 - Pneumonia due to coronavirus disease 2018 Status: Acute Assessment and Plan: Patient diagnosed with COVID on 04/23/20 but symptomatic since 04/15. CTA showing groundglass opacities and interlobular septal thickening with a lower lung zone predominance. Decadron and Remdesivir started 04/28/20. Greater than 10 days since symptoms but unclear if symptoms related to COVID or from PE. ALT normal now. CRP worse yesterday. Continue supplemental oxygen. Wean oxygen as tolerated. Will continue the Decadron and Remdesivir. Continue Albuterol. Continue supportive care. Encouraged patient to lay prone as tolerated and to be up to the chair as he tolerates. (2) Acute respiratory failure with hypoxia: Code(s): J96.01 - Acute respiratory failure with hypoxia Status: Acute Assessment and Plan: Patient was hypoxic on admission requiring 4L. He has worsened to 7L but improved now. He has been able to lay prone which has helped. CXR reviewed (04/30) showing developing bilateral acute infectious process, probably COVID and concerns for underlying ILD. ABG 7.48. Encouraged him to continue to lay prone as he tolerates. Okay to be out of bed to the chair as he tolerates. (3) Pulmonary embolism: Code(s): I26.99 - Other pulmonary embolism without acute cor pulmonale Status: Acute Assessment and Plan: Patient has been travelling lately and he is high risk for VTE since he has COVID as well. CTA of the chest showing acute bilateral pulmonary emboli if multiple lobes with possible right heart strain. Doppler of bilateral LE negative for DVT. Echo showing EF 60-65% and normal RV chamber dimension and systolic function so thus do not feel he has right heart strain. Started on Lovenox. Will convert to Eliquis in the morning. (4) Hypoxia: Code(s): R09.02 - Hypoxemia Status: Acute Assessment and Plan: Patient was on 7L but improved now. Related to above. Wean O2 as tolerated. (5) Chronic rhinitis: Code(s): J31.0 - Chronic rhinitis Status: Acute Assessment and Plan: Stable. (6) Hearing loss of both ears: Code(s): H91.93 - Unspecified hearing loss, bilateral Status: Acute Assessment and Plan: Chronic. Subjective Date/time seen: 05/01/20 16:44 Interval history: Date of service 05/01 64yo male known to have COVID here for worsening SOB and hypoxia and found to have PE. SOB better. Cough no change. Up to the chair. Able to tolerate lying prone. Exam Narrative: Exam Narrative: AF 97.9 120/79 72 22 97% 3L Gen - NARD lying semirecumbent in bed Chest - inspiratory crackles bibasilar R>L, nml RR CV - RRR. S1-S2. Abd - soft. NT/ND. +BS. Ext - no pedal edema. Psych - normal mood and affect. Skin - warm and dry. Objective Data Vital Signs Vital Signs: Vital Signs - 24 hr 04/30/20 20:00 05/01/20 00:00 05/01/20 04:00 Temperature 98.4 F 97.8 F 98.3 F Pulse Rate 93 71 74 Respiratory Rate 20 20 20 Blood Pressure 118/56 L 114/71 108/69 Pulse Oximetry 92 99 93 05/01/20 08:00 05/01/20 12:00 05/01/20 14:17 Temperature 97.9 F 97.8 F Pulse Rate 72 67 Respiratory Rate 22 H 20 Blood Pressure 120/79 108/59 L Pulse Oximetry 90 92 92 05/01/20 14:51 05/01/20 15:02 05/01/20 16:00 Temperature 97.9 F Pulse Rate 72 Respiratory Rate 22 H Blood Pressure 120/79 Pulse Oximetry 90 93 97 Intake/Output Intake/Output: Intake & Output 04/28/20 04/29/20 04/30/20 05/01/20 23:59 23:59 23:59 23:59 Intake Total 500 1180 2410 880 Output Total 1150 Balance 500 1180 1260 880 Meds/Results Medications: Active Medications Generic Name Dose Route Start Last Admin Trade Name Freq PRN Reason Stop Dose Admin Acetaminophen 650 mg 04/28/20 11:08 Acetamino
[2020-05-01] MEDS: REMDESIVIR 100 MG/NS 250 ML 100 MG/250 ML BAG 250 MG IVPB (22:00)
[2020-05-02] VITALS (9 sets, daily range): BP systolic 102–128; BP diastolic 58–78; PULSE 72–90; RESP 16–20; TEMP 36.3–36.7; O2SAT 90–99
[2020-05-02] MEDS: ALBUTEROL SULFATE (*SP) AEROSOL 1 PUFF 2 PUFF INHALATION ×4 (02:25→20:21)
[2020-05-02] MEDS: ENOXAPARIN 80 MG/0.8 ML SYRINGE SUB-Q (05:50)
[2020-05-02 06:34] LABS: Mean Corpuscular HGB Conc 34.2 g/dl (32-36); Mean Corpuscular Hemoglobin 31.3 pg (26-34); Mean Corpuscular Volume 91.3 fl (80-100); Mean Platelet Volume 9.8 fl (7.4-10.4); Platelet Count Result 259 k/mm3 (150-375); Red Blood Count 4.16 M/mm3 (4.6-6.20); Red Cell Distribution Width 12.1 % (11.5-14.5); White Blood Count 11.4 K/mm3 (4.5-10.0)
[2020-05-02 07:09] LABS: Alanine Aminotransferase 56 U/L (4-50); Albumin Level 2.9 g/dL (3.5-5.1); Alkaline Phosphatase 71 U/L (38-126); Anion Gap 5 mmol/L (8-16); Aspartate Amino Transferase 45 U/L (17-59); Bilirubin,Total 0.6 mg/dL (0.2-1.3); Blood Urea Nitrogen 16 mg/dL (9-20); CRP 4.6 mg/dL (<1.0); Calcium 8.5 mg/dL (8.4-10.2); Carbon Dioxide 25 mmol/L (22-30); Chloride 109 mmol/L (98-107); Estimated CRCL calculation 89 ml/min; Estimated Glomerular Filt Rate > 60; Glucose 115 mg/dL (75-110); Lactate Dehydrogenase 1050 U/L (313-618); Potassium 4.4 mmol/L (3.4-5.0); Sodium 139 mmol/L (137-145)
[2020-05-02] MEDS: DEXAMETHASONE SOD PHOS INJ 4 MG/ML VIAL 6 MG IV PUSH (08:01)
[2020-05-02] MEDS: FLUTICASONE/SALMETEROL 115-21 MCG INHALER 1 PUFF 2 PUFF INHALATION ×2 (08:01→20:21)
[2020-05-02] MEDS: AZELASTINE HCL NASAL 0.1% 137 MCG/SPR 30 ML BTL 1 SPRAY NASAL ×2 (08:01→20:21)
[2020-05-02] MEDS: guaiFENesin 12 HR 600 MG TABCR PO ×2 (08:01→20:19)
--- NOTE | 2020-05-02 11:37 | PM.IMPN ---
Progress Note: A&P Assessment and Plan (1) Pneumonia due to COVID-19 virus: Code(s): U07.1 - COVID-19; J12.82 - Pneumonia due to coronavirus disease 2019 Status: Acute Assessment and Plan: Patient diagnosed with COVID on 04/23/20 but symptomatic since 04/15. CTA showing groundglass opacities and interlobular septal thickening with a lower lung zone predominance. Decadron and Remdesivir started 04/28/20. Greater than 10 days since symptoms but unclear if symptoms related to COVID and/or from PE. ALT normal now. CRP and LDH better today. Continue supplemental oxygen. Wean oxygen as tolerated. Will continue the Decadron and Remdesivir. Continue Albuterol. Continue supportive care. Congratulated patient for laying prone as tolerated and to be up to the chair as he tolerates. (2) Acute respiratory failure with hypoxia: Code(s): J96.01 - Acute respiratory failure with hypoxia Status: Acute Assessment and Plan: Patient was hypoxic on admission requiring 4L. He has worsened to 7L but improved now. He has been able to lay prone which has helped. CXR reviewed (04/30) showing developing bilateral acute infectious process, probably COVID and concerns for underlying ILD. ABG 7.48/. Encouraged him to continue to lay prone as he tolerates. Okay to be out of bed to the chair as he tolerates. (3) Pulmonary embolism: Code(s): I26.99 - Other pulmonary embolism without acute cor pulmonale Status: Acute Assessment and Plan: Patient has been travelling lately and he is high risk for VTE since he has COVID as well. CTA of the chest showing acute bilateral pulmonary emboli if multiple lobes with possible right heart strain. Doppler of bilateral LE negative for DVT. Echo showing EF 60-65% and normal RV chamber dimension and systolic function so thus do not feel he has right heart strain. Started on Lovenox. Will convert to Eliquis this morning. (4) Hypoxia: Code(s): R09.02 - Hypoxemia Status: Acute Assessment and Plan: Patient was on 7L but improved now. Related to above. Wean O2 as tolerated. (5) Chronic rhinitis: Code(s): J31.0 - Chronic rhinitis Status: Acute Assessment and Plan: Stable. (6) Hearing loss of both ears: Code(s): H91.93 - Unspecified hearing loss, bilateral Status: Acute Assessment and Plan: Chronic. Subjective Date/time seen: 05/02/20 11:37 Interval history: Date of service 05/02 64yo male known to have COVID here for worsening SOB and hypoxia and found to have PE. Lying prone this morning. Feels better. More SOB but he 'was moving too fast' when he was up to the BR. Cough looser. SOB better overall. Exam Narrative: Exam Narrative: AF 98.0 128/78 83 20 90% 4L Gen - NARD lying prone in bed Chest - CTA bilaterally, nml RR CV - RRR. S1-S2. Abd - soft. NT/ND. +BS. Ext - no pedal edema. Psych - normal mood and affect. Skin - warm and dry. Objective Data Vital Signs Vital Signs: Vital Signs - 24 hr 05/01/20 12:00 05/01/20 14:17 05/01/20 14:51 Temperature 97.8 F Pulse Rate 67 Respiratory Rate 20 Blood Pressure 108/59 L Pulse Oximetry 92 92 90 05/01/20 15:02 05/01/20 16:00 05/01/20 18:28 Temperature 97.9 F Pulse Rate 72 Respiratory Rate 22 H Blood Pressure 120/79 Pulse Oximetry 93 97 95 05/01/20 20:00 05/02/20 00:00 05/02/20 03:06 Temperature 97.9 F 97.4 F L Pulse Rate 85 72 Respiratory Rate 16 16 Blood Pressure 128/73 123/58 L Pulse Oximetry 97 99 96 05/02/20 04:00 05/02/20 08:00 Temperature 97.4 F L 98.0 F Pulse Rate 77 83 Respiratory Rate 16 20 Blood Pressure 119/72 128/78 Pulse Oximetry 95 90 Intake/Output Intake/Output: Intake & Output 04/29/20 04/30/20 05/01/20 05/02/20 23:59 23:59 23:59 23:59 Intake Total 1180 2410 2580 220 Output Total 1150 Balance 1180 1260 2580 220 Meds/Result
[2020-05-02] MEDS: APIXABAN 5 MG TABLET 10 MG PO (20:19)
[2020-05-02] MEDS: REMDESIVIR 100 MG/NS 250 ML 100 MG/250 ML BAG 250 MG IVPB (21:42)
[2020-05-03] VITALS (9 sets, daily range): BP systolic 107–125; BP diastolic 70–78; PULSE 71–101; RESP 18–22; TEMP 36.5–36.8; O2SAT 90–98
[2020-05-03] MEDS: ALBUTEROL SULFATE (*SP) AEROSOL 1 PUFF 2 PUFF INHALATION ×4 (02:19→20:41)
[2020-05-03 06:17] LABS: Glucose Point of Care 131 (65-105)
[2020-05-03] MEDS: guaiFENesin 12 HR 600 MG TABCR PO ×2 (08:46→21:12)
[2020-05-03] MEDS: APIXABAN 5 MG TABLET 10 MG PO ×2 (08:46→21:12)
[2020-05-03] MEDS: FLUTICASONE/SALMETEROL 115-21 MCG INHALER 1 PUFF 2 PUFF INHALATION ×2 (08:46→20:41)
[2020-05-03] MEDS: DEXAMETHASONE SOD PHOS INJ 4 MG/ML VIAL 6 MG IV PUSH (08:47)
[2020-05-03] MEDS: AZELASTINE HCL NASAL 0.1% 137 MCG/SPR 30 ML BTL 1 SPRAY NASAL ×2 (08:47→21:12)
--- NOTE | 2020-05-03 16:04 | PM.IMPN ---
Progress Note: A&P Assessment and Plan (1) Pneumonia due to COVID-19 virus: Code(s): U07.1 - COVID-19; J12.82 - Pneumonia due to coronavirus disease 2019 Status: Acute Assessment and Plan: Patient diagnosed with COVID on 04/23/20 but symptomatic since 04/15. CTA showing groundglass opacities and interlobular septal thickening with a lower lung zone predominance. Decadron and Remdesivir started 04/28/20. Greater than 10 days since symptoms but unclear if symptoms related to COVID or from PE. ALT normal now. CRP and LDH better yesterday. Continue supplemental oxygen. Wean oxygen as tolerated. Will continue the Decadron and Remdesivir (last day). Continue Albuterol. Continue supportive care. Encouraged patient to lay prone as tolerated and to be up to the chair as he tolerates. (2) Acute respiratory failure with hypoxia: Code(s): J96.01 - Acute respiratory failure with hypoxia Status: Acute Assessment and Plan: Patient was hypoxic on admission requiring 4L. He has worsened to 7L but improved now. He has been able to lay prone which has helped. CXR reviewed (04/30) showing developing bilateral acute infectious process, probably COVID and concerns for underlying ILD. ABG 7.48/. Encouraged him to continue to lay prone as he tolerates. Okay to be out of bed to the chair as he tolerates. (3) Pulmonary embolism: Code(s): I26.99 - Other pulmonary embolism without acute cor pulmonale Status: Acute Assessment and Plan: Patient has been travelling lately and he is high risk for VTE since he has COVID as well. CTA of the chest showing acute bilateral pulmonary emboli if multiple lobes with possible right heart strain. Doppler of bilateral LE negative for DVT. Echo showing EF 60-65% and normal RV chamber dimension and systolic function so thus do not feel he has right heart strain. Started on Lovenox but converted to Eliquis. (4) Hypoxia: Code(s): R09.02 - Hypoxemia Status: Acute Assessment and Plan: Patient was on 7L but improved to 5L. Related to above. Wean O2 as tolerated. (5) Chronic rhinitis: Code(s): J31.0 - Chronic rhinitis Status: Acute Assessment and Plan: Stable. (6) Hearing loss of both ears: Code(s): H91.93 - Unspecified hearing loss, bilateral Status: Acute Assessment and Plan: Chronic. Subjective Date/time seen: 05/03/20 16:04 Interval history: Date of service 05/03 64yo male known to have COVID here for worsening SOB and hypoxia and found to have PE. No chest pain or abd pain. Cough is looser. SOB with minimal activity at times but does okay with up walking in the room. Exam Narrative: Exam Narrative: AF 97.7 113/72 84 20 97% 5L Gen - NARD lying prone in bed; becomes SOB when he rolls on his back but recovers quickly Chest - CTA bilaterally, nml RR CV - RRR. S1-S2. Abd - soft. NT/ND. +BS. Ext - no pedal edema. Psych - normal mood and affect. Skin - warm and dry. Objective Data Vital Signs Vital Signs: Vital Signs - 24 hr 05/02/20 20:00 05/03/20 00:00 05/03/20 00:27 Temperature 97.6 F 98.2 F Pulse Rate 82 74 71 Respiratory Rate 20 20 Blood Pressure 123/76 117/70 Pulse Oximetry 94 96 94 05/03/20 04:00 05/03/20 08:00 05/03/20 09:05 Temperature 98.0 F 98.2 F Pulse Rate 74 82 82 Respiratory Rate 20 22 H 22 H Blood Pressure 107/78 125/76 Pulse Oximetry 98 90 90 05/03/20 12:00 Temperature 98.0 F Pulse Rate 101 H Respiratory Rate 22 H Blood Pressure 115/72 Pulse Oximetry 96 Intake/Output Intake/Output: Intake & Output 04/30/20 05/01/20 05/02/20 05/03/20 23:59 23:59 23:59 23:59 Intake Total 2410 2580 1160 1240 Output Total 1150 Balance 1260 2580 1160 1240 Meds/Results Medications: Active Medications Generic Name Dose Route Start Last Admin Trade Name Freq PRN Reason Stop Dose Admin Acetaminophe
[2020-05-04] VITALS: BP 94/60; PULSE 77; RESP 18; TEMP 36.4; O2SAT 95
[2020-05-04] MEDS: ALBUTEROL SULFATE (*SP) AEROSOL 1 PUFF 2 PUFF INHALATION ×3 (01:46→14:30)
[2020-05-04 04:00] VITALS: BP 102/63; PULSE 63; RESP 18; TEMP 36.2; O2SAT 95
[2020-05-04 06:57] LABS: Hematocrit 43.4 % (42.0-52.0); Hemoglobin 14.7 g/dL (14.0-18.0); Mean Corpuscular HGB Conc 33.9 g/dl (32-36); Mean Corpuscular Hemoglobin 31.7 pg (26-34); Mean Corpuscular Volume 93.5 fl (80-100); Mean Platelet Volume 9.7 fl (7.4-10.4); Platelet Count Result 287 k/mm3 (150-375); Red Blood Count 4.64 M/mm3 (4.6-6.20); Red Cell Distribution Width 12.5 % (11.5-14.5); White Blood Count 10.5 K/mm3 (4.5-10.0)
[2020-05-04 07:30] LABS: Alanine Aminotransferase 66 U/L (4-50); Albumin Level 3.4 g/dL (3.5-5.1); Alkaline Phosphatase 73 U/L (38-126); Anion Gap 5 mmol/L (8-16); Aspartate Amino Transferase 45 U/L (17-59); Bilirubin,Total 0.8 mg/dL (0.2-1.3); Blood Urea Nitrogen 20 mg/dL (9-20); CRP 2.4 mg/dL (<1.0); Calcium 9.1 mg/dL (8.4-10.2); Carbon Dioxide 32 mmol/L (22-30); Chloride 102 mmol/L (98-107); Estimated CRCL calculation 80 ml/min; Estimated Glomerular Filt Rate > 60; Glucose 103 mg/dL (75-110); Lactate Dehydrogenase 972 U/L (313-618); Potassium 4.8 mmol/L (3.4-5.0); Sodium 139 mmol/L (137-145)
[2020-05-04 08:00] VITALS: BP 111/72; PULSE 63; PULSE 76; RESP 16; RESP 18; TEMP 36.8; O2SAT 95; O2SAT 97
[2020-05-04] MEDS: AZELASTINE HCL NASAL 0.1% 137 MCG/SPR 30 ML BTL 1 SPRAY NASAL (08:48)
[2020-05-04] MEDS: FLUTICASONE/SALMETEROL 115-21 MCG INHALER 1 PUFF 2 PUFF INHALATION (08:48)
[2020-05-04] MEDS: DEXAMETHASONE SOD PHOS INJ 4 MG/ML VIAL 6 MG IV PUSH (08:48)
[2020-05-04] MEDS: guaiFENesin 12 HR 600 MG TABCR PO (08:49)
[2020-05-04] MEDS: APIXABAN 5 MG TABLET 10 MG PO (10:47)
[2020-05-04 11:33] VITALS: PULSE 112; RESP 18; O2SAT 95
--- NOTE | 2020-05-04 11:56 | PM.IMPN ---
Progress Note: A&P Assessment and Plan (1) Acute respiratory failure with hypoxia: Code(s): J96.01 - Acute respiratory failure with hypoxia Status: Acute Assessment and Plan: Patient was hypoxic on admission requiring 4L. He has worsened to 11L now but partly related to overexertion. He has been able to lay prone which has helped. CXR reviewed (05/04) showing stable diffuse lung disease consistent with pneumonia and/or pulmonary edema with interval development of subcutaneous emphysema in the neck and right chest wall and possible pneumomediastinum. Will check CT chest. Encouraged him to continue to lay prone as he tolerates. Okay to be out of bed to the chair as he tolerates. Wean o2 as tolerated. (2) Pneumonia due to COVID-19 virus: Code(s): U07.1 - COVID-19; J12.82 - Pneumonia due to coronavirus disease 2018 Status: Acute Assessment and Plan: Patient diagnosed with COVID on 04/23/20 but symptomatic since 04/15. CTA showing groundglass opacities and interlobular septal thickening with a lower lung zone predominance. Completed Remdesivir 05/02. Decadron started 04/28/20. Greater than 10 days since symptoms but unclear if symptoms related to COVID or from PE. CRP and LDH better today. Continue supplemental oxygen. Wean oxygen as tolerated. Will continue the Decadron. Continue Albuterol. Continue supportive care. Encouraged patient to lay prone as tolerated and to be up to the chair as he tolerates. (3) Pulmonary embolism: Code(s): I26.99 - Other pulmonary embolism without acute cor pulmonale Status: Acute Assessment and Plan: Patient has been travelling lately and he is high risk for VTE since he has COVID as well. CTA of the chest showing acute bilateral pulmonary emboli in multiple lobes with possible right heart strain. Doppler of bilateral LE negative for DVT. Echo showing EF 60-65% and normal RV chamber dimension and systolic function so thus do NOT feel he has right heart strain. Started on Lovenox and have converted to Eliquis. (4) Hypoxia: Code(s): R09.02 - Hypoxemia Status: Acute Assessment and Plan: Patient back up to 11L related to overexertion. As above. Wean O2 as tolerated. (5) Chronic rhinitis: Code(s): J31.0 - Chronic rhinitis Status: Acute Assessment and Plan: Stable. (6) Hearing loss of both ears: Code(s): H91.93 - Unspecified hearing loss, bilateral Status: Acute Assessment and Plan: Chronic. Subjective Date/time seen: 05/04/20 11:56 Interval history: Date of service 05/04 64yo male known to have COVID here for worsening SOB and hypoxia and found to have PE. O2 turned down to 3L last night. He had trouble sleeping so O2 increased to 3.5L and he slept better. This morning, he was up to 5L. Became more SOB after a BM (bedside commode) and walking to the chair. O2 increased to 11L since it took patient a while to compensate. No chest pain or neck pain. Eating okay. Able to lie prone earlier today. Exam Narrative: Exam Narrative: AF 98.3 111/72 112 18 95% 11L (while in the room, able to decrease to 10L then 9L with pulse ox remaining above 95%) Gen - NARD sitting up in chair Neck - no crepitus to the neck or upper chest/back Chest - decreased breath sounds in the bases o/w distant BS CV - RRR. S1-S2. Abd - soft. NT/ND. +BS. Ext - no pedal edema. Psych - normal mood and affect. Skin - warm and dry. Objective Data Vital Signs Vital Signs: Vital Signs - 24 hr 05/03/20 12:00 05/03/20 16:00 05/03/20 20:00 Temperature 98.0 F 97.7 F 97.9 F Pulse Rate 101 H 84 86 Respiratory Rate 22 H 20 18 Blood Pressure 115/72 113/72 123/75 Pulse Oximetry 96 97 93 05/03/20 21:23 05/04/20 00:00 05/04/20 04:00 Temperature 97.5 F L 97.2 F L Pulse Rate 77 63 Respiratory Rate 18 18 Blood Pressure 94/60 L 102/63 Pulse Oximetry 93 95 95 01/2
[2020-05-04 12:00] VITALS: BP 103/78; PULSE 96; RESP 18; TEMP 36.9; O2SAT 100
[2020-05-04 16:00] VITALS: BP 108/73; PULSE 94; RESP 18; TEMP 36.7; O2SAT 95
--- NOTE | 2020-05-04 17:44 | PM.TDS ---
Transfer Discharge Sum: Prov Provider Date of admission: 04/28/20 11:08 Primary care physician: Ghazala Miller MD Admitting clinician: Garry Valverde MD Attending physician on discharge: Jared Nelson Discharging clinician: Jared Nelson Anticipated date of transfer: 05/04/20 Receiving physician/facility: [facility] Dr Rivera Roberson DS: Admitting Diagnosis Admitting Diagnosis Admitting Diagnosis: SOB DS: Discharge Diagnosis Discharge Diagnosis (1) Pneumomediastinum: Code(s): J98.2 - Interstitial emphysema Status: Acute Assessment and Plan: CXR reviewed (05/04) showing stable diffuse lung disease consistent with pneumonia and/or pulmonary edema with interval development of subcutaneous emphysema in the neck and right chest wall and possible pneumomediastinum. CT chest showing interval development of pneumomediastinum tracking into the neck and chest wall, likely related to lung disease. Patine does not have known underlying lung disease. CT also showing diffuse groundglass opacities with a lower lung zone predominance, likely pneumonia. Doubt bacterial since no fevers, WBC 10K and CRP/LDH are trending down. Spoke with patient and and recommended transfer to a higher level of care. They agreed and rafael was accepted at [facility]. (2) Pneumonia due to COVID-19 virus: Code(s): U07.1 - COVID-19; J12.82 - Pneumonia due to coronavirus disease 2019 Status: Acute Assessment and Plan: Patient diagnosed with COVID on 04/23/20 but symptomatic since 04/15. CTA chest showing groundglass opacities and interlobular septal thickening with a lower lung zone predominance. Completed Remdesivir 05/02. Decadron started 04/28/20. Greater than 10 days since symptoms but unclear if symptoms related to COVID or from PE. CRP and LDH better today. Plan to transfer for further care. (3) Acute respiratory failure with hypoxia: Code(s): J96.01 - Acute respiratory failure with hypoxia Status: Acute Assessment and Plan: Patient was hypoxic on admission requiring 4L. He has worsened to 11L now but partly related to overexertion. He has been able to lay prone which has helped. Encouraged him to continue to lay prone as he tolerates. Okay to be out of bed to the chair as he tolerates. (4) Pulmonary embolism: Code(s): I26.99 - Other pulmonary embolism without acute cor pulmonale Status: Acute Assessment and Plan: Patient has been travelling lately and he is high risk for VTE since he has COVID as well. CTA of the chest on admission showing acute bilateral pulmonary emboli in multiple lobes with possible right heart strain. Doppler of bilateral LE negative for DVT. Echo showing EF 60-65% and normal RV chamber dimension and systolic function so thus do NOT feel he has right heart strain. Started on Lovenox and have converted to Eliquis. (5) Chronic rhinitis: Code(s): J31.0 - Chronic rhinitis Status: Acute Assessment and Plan: Stable. (6) Hearing loss of both ears: Code(s): H91.93 - Unspecified hearing loss, bilateral Status: Acute Assessment and Plan: Chronic. Transfer Discharge Sum: Med Medications Active and Home Medications: Home Medications clobetasol 0.05 % scalp solution 1 applic TOPICAL DAILY #50 ml 12/18/19 [Rx Confirmed 04/28/20] azelastine 137 mcg (0.1 %) nasal spray aerosol 1 spray INTRANASAL Q12H #30 ml 03/12/20 [Rx Confirmed 04/28/20] calcipotriene 0.005 % scalp solution 1 applic TOPICAL DAILY 03/12/20 [History Confirmed 04/28/20] triamcinolone acetonide 0.1 % topical cream 1 applic TOPICAL BID 03/12/20 [History Confirmed 04/28/20] dexamethasone 4 mg tablet 4 mg PO BID 7 Days #14 tablet 04/25/20 [Rx Confirmed 04/28/20] dexamethasone 6 mg tablet 6 mg PO BID 7 Days #14 tablet 04/25/20 [Rx Confirmed 04/28/20] fluticasone 250 mcg-salmeterol 50 mcg/dose blistr powdr for inhalation 1
== END 2020-05-04 19:00 | disposition short-term general hospital (02) | DRG 177 ==
LOC: ANHED 11:39 → ANH3MEDSUR 11:52
PROVIDERS: Admitting Provider Internal Medicine; Emergency Provider Emergency Medicine; PCP Family Medicine; Visit Provider Internal Medicine
DX: U07.1 COVID-19 (principal); J12.82 Pneumonia due to coronavirus disease 2019; I26.99 Other pulmonary embolism without acute cor pulmonale; J96.01 Acute respiratory failure with hypoxia; J98.2 Interstitial emphysema
CPT/HCPCS: 36415; 36600; 71045; 71250; 71275; 80048; 80053; 82565; 82805; 83615; 84460; 85025; 85027; 85380; 86038; 86140; 93005; 93306; 93970; 94640; 96374; 99285; A9270; J1100; J1650; Q9967